=== PATIENT | female | born 1950 | race Caucasian/White ===

== ENCOUNTER 2016-08-18 14:34 | Emergency (ER) | payer OTHER, BC ==
[~2016-08-18 14:34] MED LIST: ASAB PO; EPIPEN0.3 IM; FIORICET OR; LIPITOR20 PO; LORTAB 5 PO; MULTIPLE VIT PO; NORCO1 TA1 PO; PRILOSEC40 MG PO; PRIN2.5 PO; PROZAC PO; RANITIDINE300 MG PO; V5 PO; X5 PO; XANAX1 MG PO; ZESTRIL20 MG PO
[2016-08-18 20:06] LABS: BASOPHILS 0.3 %; BASOPHILS ABSOLUTE 0.02 10/3/uL (0.0-0.16); EOSINOPHILS 2.4 %; EOSINOPHILS ABSOLUTE 0.19 10/3/uL (0.0-0.53); ER CBC TAT 0 Hrs 07 Mins; IMMATURE GRANULOCYTES 0.3 %; IMMATURE GRANULOCYTES ABSOLUTE 0.02 10/3/uL (0.0-0.11); LYMPHOCYTES 36.6 %; LYMPHOCYTES ABSOLUTE 2.88 10/3/uL (0.67-4.30); MEAN CORPUS HGB CONC 33.6 g/dL (32.0-36.0); MEAN CORPUSCULAR HEMOGLOB 31.2 pg (26.0-34.0); MEAN PLATELET VOLUME 8.8 fL (9.2-13.0); MONOCYTES 6.9 %; MONOCYTES ABSOLUTE 0.54 10/3/uL (0.21-1.20); NEUTROPHILS 53.5 %; NEUTROPHILS ABSOLUTE 4.21 10/3/uL (2.02-8.40); PLATELET COUNT 262 10/3/uL (150-400); RBC DISTRIBUTION WIDTH 13.9 % (12.0-16.0); WHITE BLOOD CELLS 7.9 10/3/uL (4.5-10.5)
[2016-08-18 20:08] LABS: HEMATOCRIT 41.4 % (36.0-48.0); HEMOGLOBIN 13.9 g/dL (12.0-16.0); MANUAL DIFF NO %; MEAN CORPUSCULAR VOLUME 92.8 fL (80-100); RED CELL COUNT 4.46 10/6/uL (4.0-5.6)
[2016-08-18 20:22] LABS: ALBUMIN 3.5 G/DL (3.5-5.0); ALKALINE PHOSPHATASE 116 U/L (45-117); BUN (BLOOD UREA NITROGEN) 6 MG/DL (6-23); CHLORIDE, SERUM 104 MMOL/L (96-112); CO2 (CARBON DIOXIDE) 27 MMOL/L (24-34); CREATININE 0.75 MG/DL (0.55-1.02); GFR AFRICAN AMERICAN 97 ML/MIN (>=60); GFR NON AFRICAN AMERICAN 84 ML/MIN (>=60); GLOBULIN 3.6 G/DL (2.5-4.1); GLUCOSE, SERUM 85 MG/DL (60-99); POTASSIUM, SERUM 3.8 MMOL/L (3.5-5.3); SGOT(AST) 25 U/L (5-40); SGPT(ALT) 28 U/L (5-65); SODIUM, SERUM 138 MMOL/L (135-148); TOTAL PROTEIN 7.1 G/DL (6.0-8.5)
== END 2016-08-18 20:31 | disposition home or self-care (01) ==
LOC: ER 14:34
PROVIDERS: Emergency Medicine
DX: M54.42 Lumbago with sciatica, left side (principal); I10 Essential (primary) hypertension; K21.9 Gastro-esophageal reflux disease without esophagitis; K76.0 Fatty (change of) liver, not elsewhere classified; F41.9 Anxiety disorder, unspecified; M19.90 Unspecified osteoarthritis, unspecified site; F17.200 Nicotine dependence, unspecified, uncomplicated; Z88.0 Allergy status to penicillin; Z88.2 Allergy status to sulfonamides; Z88.5 Allergy status to narcotic agent; Z91.041 Radiographic dye allergy status; Z88.8 Allergy status to other drugs, medicaments and biological substances; Z79.82 Long term (current) use of aspirin; Z79.899 Other long term (current) drug therapy
CPT/HCPCS: 72148; 80053; 85025; 96372; 99284; A9270-GY; J1170

== ENCOUNTER 2016-08-21 02:37 | Inpatient (IN) | payer OTHER, BC ==
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
--- NOTE | ~2016-08-21 | HP ---
History And Physical [facility] [address] [place] [address] NAME: AMARI ROJAS : 52 STATUS : REG ER PAT#: [id number] AGE: 66 ADM/REG DATE : 08/21/16 MR#: [id number] REPORT SERV DATE: 08/21/16 DICTATED BY: BENJAMIN MONROY DATE: 08/21/16 REPORT STATUS : Draft TRANSCRIBED BY: MODL DATE: 08/21/16 DATE OF ADMISSION: 08/21/2016 POINT OF ENTRY: [facility] Emergency Department. PRIMARY ORTHO SPINE SURGEON: Edwin Martinez DO. CHIEF COMPLAINT: Upper and lower extremity pain, numbness, and weakness. HISTORY OF PRESENT ILLNESS: Ms. Rojas is a 66-year-old female with history of hypertension, hyperlipidemia, hypothyroidism, as well as chronic lower back pain who presents to the emergency department today with persistent lower extremity pain, weakness, numbness, and tingling with new development of upper extremity pain and weakness. The patient sees Dr. Martinez for chronic lower back pain as well as lower extremity neuropathic pain with associated weakness. She is status post a lumbar laminectomy with subsequent revision. The patient has seen Dr. Martinez recently with continued complaints of lower extremity neuropathic pain as well as weakness with associated fatigue and inability to walk, and he ordered an MRI of the lumbar spine which showed no significant spinal stenosis, neural foraminal narrowing, or specific nerve root impingement. There are extensive postsurgical changes and mild degenerative disk disease, but again no stenosis or neural foraminal narrowing. Given absence of radiologic findings, he had planned for an outpatient MRI of the cervical and thoracic spine. Initial evaluation in the emergency department for labs were otherwise unremarkable except for urinalysis positive for urinary tract infection. Given the patient's extensive upper and lower extremity complaints with initial plans for outpatient MRI, MRI of the cervical and thoracic spine were obtained here in the emergency department and showed mild diffuse spinal cord edema from C2-C6 and concern for possible transverse myelitis. MRI of the thoracic spine shows T8-T9 oemm-ai-uewjsjha central spinal canal and right lateral recess narrowing and moderate right neural foraminal narrowing. The cervical spine also has C5-C6 mild central spinal canal stenosis with moderate right and mild left neural foraminal narrowing as well as amqb-wo-kvjmzwwa C6-C7 left neural foraminal narrowing and mild central spinal canal stenosis. Given the abnormal cervical spinal cord findings, the patient was admitted to the Hospitalist Service for Neurology as well as Ortho Spine Surgical consultations and evaluation. The patient states that she has not felt well recently. She has bilateral upper and lower extremity pains, primarily neuropathic in description with associated weakness, inability to walk great distances, inability to complete activities of daily living. She denies any recent fevers, night sweats, chills, chest pain, palpitations, shortness of breath, abdominal pain, nausea, vomiting, diarrhea, constipation, dysuria, melena, or hematochezia. REVIEW OF SYSTEMS: History And Physical [address] [place]. [address] NAME: AMARI ROJAS : 52 STATUS : REG ER PAT#: [id number] AGE: 66 ADM/REG DATE : 08/21/16 MR#: [id number] REPORT SERV DATE: 08/21/16 DICTATED BY: BENJAMIN MONROY DATE: 08/21/16 REPORT STATUS : Draft TRANSCRIBED BY: FAB DATE: 08/21/16 Comprehensive review of systems otherwise negative unless listed in the history of present illness. PAST MEDICAL HISTORY: 1. Rheumatoid arthritis. 2. Hypertension. 3. Hyperlipidemia. 4. Anxiety. 5. Hypothyroidism. 6. Fatty liver. 7. Chronic lower back pain. SURGICAL HISTORY: Appendectomy, cholecystectomy, abdominal hysterectomy, tonsillectomy, and lumbar fusion and subsequent revision. ALLERGIES: 1. PENICILLIN. 2. SULFA DRUGS. 3. IODINE. 4. . 5. OXYCODONE. 6. VALIUM. 7. CODEINE. 8. DICLOFENAC. 9. STEROIDS. HOME MEDICATIONS: 1. Xanax 1 mg b.i.d. 2. Aspirin 81 mg daily. 3. Prozac 20 mg daily. 4. Levothyroxine 25 mcg daily. 5. Lisinopril 20 mg daily. 6. Robaxin 1500 mg t.i.d. p.r.n. 7. Singulair 10 mg daily. 8. Naproxen 500 mg q.12 hours. 9. Omeprazole 40 mg daily. 10.Pravastatin 40 mg daily. 11.Ranitidine 3 mg at bedtime. SOCIAL HISTORY: Denies any alcohol or illicits. Does smoke about a half pack per day. FAMILY MEDICAL HISTORY: Mother with brain cancer. Father with diabetes and history of stroke. Siblings with history of hypertension and coronary artery disease. LABS AND IMAGIN. White count is 8.0, hemoglobin is 12.8, hematocrit is 37.8, and platelet count is 267. 2. Sodium 140, potassium 3.6, chloride 107, carbon dioxide 28, BUN 10, creatinine 0.84, History And Physical [address] [address] NAME: AMARI ROJAS : 51 STATUS : REG ER PAT#: [id number] AGE: 66 ADM/REG DATE : 08/21/16 MR#: [id number] REPORT SERV DATE: 08/21/16 DICTATED BY: BENJAMIN MONROY DATE: 08/21/16 REPORT STATUS : Draft TRANSCRIBED BY: MODL DATE: 08/21/16 glucose 93, calcium 8.0, protein 6.9, albumin 3.6, bili 0.6, ALT 19, AST 18, and alk phos 121. 3. Urinalysis, specific gravity is 1.009, hazy with large leukocyte esterase, positive nitrites, and 33 white blood cells per high-powered field. 4. MRI of the cervical spine shows mild diffuse cord edema with mild expansion of the cord extending from C2-C6. Findings may represent transverse myelitis. Clinical correlation recommended. C5-C6 posterior disk osteophyte formation with right paracentral disk protrusion, bilateral facet joint arthropathy, and uncovertebral hypertrophy resulting in mild central spinal canal stenosis, moderate right and mild left neural foraminal narrowing. C6-C7 posterior disk osteophyte formation, bilateral facet joint arthropathy, and left uncovertebral hypertrophy resulting in mild central spinal canal stenosis, evyb-yf-pidwwmvs left neural foraminal narrowing, the right neural foramen is patent. 5. CT scan of the thoracic spine, no evidence of acute fracture or traumatic subluxation, T8-T9 posterior disk bulge with right central and paracentral disk protrusion causing goyy-xh-dwwnvqdm central spinal canal and right lateral recess narrowing. There is moderate right neural foraminal narrowing. Left neural foramen is patent. PHYSICAL EXAMINATION: VITAL SIGNS: Temperature is 97.0 degrees Fahrenheit, pulse is 83, respirations are 16, satting 97% on room air, and blood pressure is 180/97. GENERAL: The patient is awake, alert, in no acute distress, and resting comfortably. She is an elderly female. HEENT: Atraumatic and normocephalic. Moist mucous membranes. Pupils are equal, round, and reactive to light and accommodation. Extraocular movements intact. No scleral icterus. NECK: No jugular venous distention. No carotid bruits. CARDIAC: Regular rate and rhythm. No murmurs or gallops. Normal S1, S2. LUNGS: Clear to auscultation bilaterally. No wheezes, rhonchi, or rales. ABDOMEN: Soft, nontender, and nondistended. Good bowel sounds. No rebound, guarding, or rigidity. EXTREMITIES: Warm and perfused. No cyanosis, clubbing, or edema. SKIN: Warm and dry. PSYCHIATRIC: Affect appropriate. NEUROLOGIC: Alert and oriented x3. Cranial nerves 2 through 12 grossly intact. Speech is normal. Gait is not assessed. Strength is 5/5 in bilateral upper extremities, 4/5 strength left lower extremity, and 5/5 strength right lower extremity. Gross sensation is intact. Gait is not assessed. ASSESSMENT AND PLAN: Ms. Rojas is a 66-year-old female with history of chronic lower back pain, who presents with bilateral upper and lower extremity neuropathic pain with some associated weakness and inability to walk and found to have evidence of mild cervical spinal cord edema and expansion as well as multiple areas of qrlz-js-vmlizoss central spinal canal stenosis and neural foraminal narrowing concerning for likely compressive myelopathy versus radiculopathy. PROBLEM LIST: 1. Cervical spinal cord edema and expansion. History And Physical [address] [address] NAME: AMARI ROJAS : 52 STATUS : REG ER PAT#: [id number] AGE: 66 ADM/REG DATE : 08/21/16 MR#: [id number] REPORT SERV DATE: 08/21/16 DICTATED BY: BENJAMIN MONROY DATE: 08/21/16 REPORT STATUS : Draft TRANSCRIBED BY: FAB DATE: 08/21/16 2. Upper and lower extremity neuropathic pain. 3. Urinary tract infection. 4. Hypertension. PLAN: 1. Cervical spinal cord edema and expansion, concern for possible transverse myelitis. We will consult Neurology for assistance in evaluating this abnormal MRI of the cervical spine. 2. Upper and lower extremity neuropathic pain and weakness. Based on the patient's descriptions as well as MRI findings, I suspect that this is all due to either myelopathy versus radiculopathy. We will consult both Neurology as well as Orthopedic Spine Surgery, Dr. Martinez, to review MRIs. 3. Urinary tract infection. Follow up urine cultures. IV antibiotics. 4. Hypertension, continue the patient's home antihypertensives and IV hydralazine p.r.n. 5. DVT prophylaxis, Lovenox subcu. CODE STATUS: The patient wishes to be full code. JCB/MODL Benjamin Monroy MD / [id number] CC: Mer Grace, DO
--- NOTE | ~2016-08-21 | CN ---
Consultation Report [facility] [address] [place]. [address] NAME: AMARI ROJAS : 52 STATUS : ADM Jagjit PAT#: [id number] AGE: 66 ADM/REG DATE : 08/21/16 MR#: [id number] REPORT SERV DATE: 08/21/16 DICTATED BY: DATE: REPORT STATUS : Draft TRANSCRIBED BY: MODL DATE: 08/21/16 NEUROLOGY CONSULTATION DATE OF CONSULTATION: 08/21/2016 REASON FOR CONSULT: Possible myelitis. HISTORY OF PRESENT ILLNESS: This is a 66-year-old female who presented to [facility] on 08/21/2016 secondary to increasing shooting pain down bilateral shoulder as well as pain in the lower back. The patient went to the patient's orthopedic physician, Dr. Martinez, who ordered MRI study and was noted to have C-spine lesion. The patient reports over the past week to two weeks was noted to have increasing pain to the bilateral shoulders as well as the pain, even lower back down to bilateral lower extremity where the patient reports pain relieved with neck extension. Otherwise, the patient denies shooting pain with neck flexion. The patient reports having chronic lower back pain secondary to previous back injury that has recently got worse. She also reports significant weakness as well as pain when patient was over-exerted. The patient otherwise denies significant difficulties in the hot weather. The patient does have chronic vision difficulties that progressively got worse over the past several months but does not appear to have unilateral blindness in the past. The patient complains of persistent and chronic bowel difficulty, again does not appear to have been worse recently, does not appear to have significant bladder difficulty according to the patient. She denies any significant walking difficulties and reports symptom at times gets better when patient is walking around. The patient has had recent muscle relaxer prescription secondary to significant pain but otherwise denies any other significant medication changes. The patient denies any recent illness, fever, chills, nausea, vomiting, chest pain, or shortness of breath. REVIEW OF SYSTEMS: The patient does have review of systems being negative except for those mentioned in the HPI. PAST MEDICAL HISTORY: Significant for rheumatoid arthritis, hypertension, hyperlipidemia, anxiety, hypothyroidism, fatty liver, and chronic lower back pain. The patient does not appear to have her rheumatological followup. The patient also has had a history of ENT followup in the past. SOCIAL HISTORY: Continued tobacco usage. Otherwise, denies alcohol or illicit drug usage. FAMILY HISTORY: Significant for history of brain tumor as well as diabetes, coronary artery disease, stroke, hypertension with the patient's extended family members have history of arthritis, with the patient's aunt was initially wheelchair bound and later bed-bound. ALLERGIES: AT TIME OF EVALUATION, PATIENT WAS NOTED TO HAVE MULTIPLE DRUG ALLERGIES INCLUDING PENICILLIN, SULFA, IODINE, BEE STINGS, PERCOCET, VALIUM, CODEINE, DICLOFENAC. THE Consultation Report [place] [id number] [facility] [place]. [address] NAME: AMARI ROJAS : 52 STATUS : ADM Jagjit PAT#: [id number] AGE: 66 ADM/REG DATE : 08/21/16 MR#: [id number] REPORT SERV DATE: 08/21/16 DICTATED BY: DATE: REPORT STATUS : Draft TRANSCRIBED BY: MODL DATE: 08/21/16 PATIENT REPORTS THE STEROIDS ALLERGY BUT REPORTS REACTION TO BE ELEVATED BLOOD PRESSURE. MEDICATIONS: The patient's home medication consists of Xanax, aspirin, fluoxetine, levothyroxine, lisinopril, Robaxin, Singulair, naproxen, Prilosec, pravastatin, prednisone Dosepak as well as Zantac. PHYSICAL EXAMINATION: VITAL SIGNS: Overnight, the patient was noted to have vital signs with T-max of 98.2, heart rate of 80 to 84, respirations of 14 to 20, blood pressure of 139 to 172 over 70 to 89. GENERAL: The patient is well developed, well nourished, in no acute distress. CARDIOVASCULAR EXAMINATION: Regular rate and rhythm. No carotid bruits were otherwise auscultated. PULMONARY EXAMINATION: Clear to auscultation bilaterally. NEUROLOGICAL EXAMINATION: Generally, the patient is alert, oriented to person, place, year, and month. Follows simple and 2-step commands. Mild decreased attention span. Intact registration. Some difficulties with recall. Cranial nerves 2 through 12; pupils equal, round, and reactive to light. Extraocular eye movement was noted to be intact with intact peripheral vision. The patient was noted to have reports of symmetrical facial sensation, symmetrical facial expression. Midline tongue. Normal palatal movement. Mild decreased hearing in bilateral ears. The patient demonstrated 5-/5 bilateral upper extremity strength and 4/5 bilateral lower extremity strength. Mild bilateral pronator drift was otherwise noted. Reports symmetrical sensation bilaterally. Deep tendon reflex was 1+ throughout. The patient otherwise demonstrated normal rshegr-tn-bxcn examination without ataxia. The patient demonstrated normal stable gait at time of evaluation. LABORATORY STUDIES: Demonstrated white blood cell count of 8.0, hemoglobin of 12.8, hematocrit of 37.8, and platelet count of 267. Chemistry panel: Sodium 140, potassium 3.6, chloride 107, bicarb 28, BUN of 10, creatinine 0.84, glucose of 93, calcium of 8.6. Urinalysis otherwise demonstrated large leukocyte esterase and positive nitrite. The patient's MRI of the C-spine as well as the T-spine and L-spine was reviewed. The patient C-spine does demonstrate longitudinally extensive lesion from roughly C2 to C6 area. Contrast was not provided. As a result, it is unclear whether or not the lesion was contrast enhancing. There is no brain MRI for evaluation. No C-spine, T-spine or L-spine compression was otherwise noted. IMPRESSION: 1. Myelitis. 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 We will start the patient on trial of Solu-Medrol as well as discontinue Robaxin and start the patient on tizanidine for muscle spasm. We will check serum neuromyelitis optica antibodies as well as SSA and SSB antibodies. We will perform lumbar puncture by Radiology and check MRI of the brain as well as C-spine with and without contrast with Consultation Report [address] [place]. [address] NAME: AMARI ROJAS : 52 STATUS : ADM Jagjit PAT#: [id number] AGE: 66 ADM/REG DATE : 08/21/16 MR#: [id number] REPORT SERV DATE: 08/21/16 DICTATED BY: DATE: REPORT STATUS : Draft TRANSCRIBED BY: MODL DATE: 08/21/16 fat suppression sequence for further evaluation especially of brain lesions. RECOMMENDATION: 1. Serum NMO antibodies as well as SSA and SSB antibody. 2. Radiology for lumbar puncture. 3. CSF for protein, glucose, cell count with differential, HSV PCR, cryptococcal antigen, myelin basic protein, oligoclonal bands. 4. HIV with morning labs. 5. NMO SSA SSB antibodies. 6. Solu-Medrol 500 mg IV b.i.d. x5 days. 7. Discontinue Robaxin. 8. Tizanidine 2 mg p.o. q.8 hours. CCH/MODL Issac Monaco MD / [id number] CC: Mer Winslow M.D.
--- NOTE | ~2016-08-21 | DS ---
Discharge Summary [facility] [address] [place]. [address] NAME: AMARI ROJAS : 52 STATUS : DIS IN PAT#: [id number] AGE: 66 ADM/REG DATE : 08/21/16 MR#: [id number] REPORT SERV DATE: 08/27/16 DICTATED BY: MIKHAIL TAM DATE: 08/26/16 REPORT STATUS : Draft TRANSCRIBED BY: FAB DATE: 08/26/16 ADMISSION DATE: 08/21/2016 DISCHARGE DATE: 08/26/2016 CONSULTATION: 1. Neurology, Dr. Murphy. 2. Spine surgeon, Dr. Martinez. INVASIVE PROCEDURES: None. DISCHARGE DIAGNOSES: 1. 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 2. Urinary tract infection. 3. Hypertension. 4. Hyperlipidemia. 5. History of fatty liver. 6. Rheumatoid arthritis. 7. Steroid-induced hyperglycemia. 8. Hypertension. DISCHARGE CONDITION: Stable. HISTORY OF PRESENT ILLNESS: For detailed HPI, make reference to Dr. Kunal English's dictation on 08/21/2016. In brief, this is a 66-year-old female with medical history of hypertension, hyperlipidemia, hypothyroidism, rheumatoid arthritis, and chronic low back pain, who presented to the emergency department with persistent lower extremity pain, generalized weakness, numbness, tingling, and new development of upper extremity weakness. Vital signs, temperature 97.0, pulse 53 beats per minute, respiratory rate 16, saturating 97% on room air. Physical exam was noted for lower extremity strength of 5/5, bilateral upper extremities 4/5. An MRI of the cervical spine shows mild diffuse cord edema with mild expansion of the cord extending from C2 to C5. Findings likely represent transverse myelitis. An assessment of cervical cord edema secondary to transverse myelitis was made in the ER. The patient was admitted to the Hospitalist Service. Autoimmune myelitis, questionable NMO versus transverse myelitis. Neurology was consulted. Recommended to check NMO antibody, and an LP was done. The patient was started on high-dose IV Solu-Medrol. The patient's generalized weakness continued to improve during the course of this admission. The patient received a total dose of five days therapy of IV Solu-Medrol during this admission with dramatic improvement in generalized weakness, lower extremity weakness, and upper extremity weakness. At the time of discharge, the patient's oligoclonal band NMO was still pending. Analysis of the CSF did not show any evidence of infection. The patient was advised to follow up with Neurology within two to three weeks of discharge. Discharge Summary [facility] [id number] [place]. [address] NAME: AMARI ROJAS : 52 STATUS : DIS IN PAT#: [id number] AGE: 66 ADM/REG DATE : 08/21/16 MR#: [id number] REPORT SERV DATE: 08/27/16 DICTATED BY: MIKHAIL TAM DATE: 08/26/16 REPORT STATUS : Draft TRANSCRIBED BY: MODL DATE: 08/26/16 The patient was also placed on methylprednisone Medrol pack for prednisone taper. Also of note, the patient's Spine Surgery, Dr. Martinez was consulted during this admission, was noted that the patient's imaging has no written evidence of cervical stenosis or neural foraminal narrowing. Hence, no surgical intervention was performed. The patient's dramatic improvement was only to response, which is in keeping with a myelitis syndrome. Hyperglycemia secondary to steroid use. The patient required sliding scale insulin during this admission. The patient's last HbA1c was 5.7. No known history of diabetes prior to admission. The patient's hyperglycemia is likely related to high-dose steroid use during this admission. Hypertension. The patient's blood pressure was elevated during this admission. Norvasc was added to the patient's home dose antihypertensive with good response. The patient was advised to continue to follow up with PCP as an outpatient. Urinary tract infection. Urinalysis on presentation showed large leukocyte esterase, positive nitrites. Urine culture grew E coli, pansensitive. The patient received total days of IV and p.o. cephalosporin to complete five days therapy prior to discharge. DISCHARGE MEDICATIONS: 1. Aspirin 81 mg p.o. daily. 2. Xanax 1 mg p.o. b.i.d. 3. Lisinopril 20 mg p.o. daily. 4. Norvasc 5 mg p.o. daily. 5. Zantac 300 mg p.o. daily. 6. Levothyroxine 25 mcg p.o. daily. 7. Methylprednisone Medrol pack taper. 8. Omeprazole 40 mg p.o. daily. 9. Singulair 10 mg p.o. daily. 10.Pravachol 40 mg p.o. daily. 11.Robaxin 1500 mg p.o. t.i.d. p.r.n. SIGNIFICANT IMAGIN. MRI cervical spine, impression, subtle increased signal is seen within the cervical cord from the C2 to C3 levels with mild cervical cord enlargement. Consider transverse myelitis or demyelinating syndrome. 2. MRI brain without contrast, impression, no acute intracranial abnormality. DISCHARGE CONDITION: Stable. DISCHARGE ACTIVITIES: As tolerated. DISCHARGE FOLLOWUP: 1. Follow up with Neurology within two to three weeks of discharge. 2. Follow up with primary care physician within one to two weeks of discharge. 3. Follow up with Rheumatology as an outpatient for management of rheumatoid arthritis. Discharge Summary [address] [address] NAME: AMARI ROJAS : 52 STATUS : DIS IN PAT#: [id number] AGE: 66 ADM/REG DATE : 08/21/16 MR#: [id number] REPORT SERV DATE: 08/27/16 DICTATED BY: MIKHAIL TAM DATE: 08/26/16 REPORT STATUS : Draft TRANSCRIBED BY: FAB DATE: 08/26/16 Greater than 30 minutes was used to prepare this discharge, reconcile medication, advise the patient on discharge plans, and followup. DICTATED BY: MD VINCENZO Hooks/FAB Mikhail Tam MD / [id number] CC: MD Arnaldo Hooks M.D.
[2016-08-21 03:53] LABS: BASOPHILS 0.4 %; BASOPHILS ABSOLUTE 0.03 10/3/uL (0.0-0.16); EOSINOPHILS 2.9 %; EOSINOPHILS ABSOLUTE 0.23 10/3/uL (0.0-0.53); HEMATOCRIT 37.8 % (36.0-48.0); HEMOGLOBIN 12.8 g/dL (12.0-16.0); IMMATURE GRANULOCYTES 0.1 %; IMMATURE GRANULOCYTES ABSOLUTE 0.01 10/3/uL (0.0-0.11); LYMPHOCYTES 40.6 %; LYMPHOCYTES ABSOLUTE 3.25 10/3/uL (0.67-4.30); MEAN CORPUS HGB CONC 33.9 g/dL (32.0-36.0); MEAN CORPUSCULAR HEMOGLOB 31.2 pg (26.0-34.0); MEAN CORPUSCULAR VOLUME 92.2 fL (80-100); MEAN PLATELET VOLUME 8.8 fL (9.2-13.0); MONOCYTES 6.7 %; MONOCYTES ABSOLUTE 0.54 10/3/uL (0.21-1.20); NEUTROPHILS 49.3 %; NEUTROPHILS ABSOLUTE 3.95 10/3/uL (2.02-8.40); PLATELET COUNT 267 10/3/uL (150-400); RBC DISTRIBUTION WIDTH 13.9 % (12.0-16.0)
[2016-08-21 03:54] LABS: MANUAL DIFF NO %
[2016-08-21 04:09] LABS: A/G RATIO 1.1 (0.7-1.9); ALBUMIN 3.6 G/DL (3.5-5.0); ALKALINE PHOSPHATASE 121 U/L (45-117); BUN (BLOOD UREA NITROGEN) 10 MG/DL (6-23); CALCIUM, SERUM 8.6 MG/DL (8.5-10.4); CHLORIDE, SERUM 107 MMOL/L (96-112); CO2 (CARBON DIOXIDE) 28 MMOL/L (24-34); CREATININE 0.84 MG/DL (0.55-1.02); GFR AFRICAN AMERICAN 85 ML/MIN (>=60); GFR NON AFRICAN AMERICAN 73 ML/MIN (>=60); GLOBULIN 3.3 G/DL (2.5-4.1); GLUCOSE, SERUM 93 MG/DL (60-99); POTASSIUM, SERUM 3.6 MMOL/L (3.5-5.3); SGOT(AST) 18 U/L (5-40); SGPT(ALT) 19 U/L (5-65); SODIUM, SERUM 140 MMOL/L (135-148); TOTAL BILIRUBIN 0.6 MG/DL (0-1.2); TOTAL PROTEIN 6.9 G/DL (6.0-8.5)
[2016-08-21 04:28] LABS: ASCORBIC ACID (UR NOT ORDER) NEG (NEG); BILIRUBIN, URINE NEGATIVE (NEG); ER URINALYSIS TAT 0 Hrs 18 Mins; KETONE, URINE NEGATIVE (NEG); LEUKOCYTE ESTERASE(NOT OR LARGE (NEG); NITRITE (URINE) POS (NEG); WBC (NOT ORDERED) (RFLEX) 33 (0-5)
[2016-08-21] MEDS ORDERED: SINGULAIR1 PO (06:21)
[2016-08-21] MEDS ORDERED: PRIN20 PO (06:22)
[2016-08-21] MEDS ORDERED: PRAVACHOL40 MG PO (06:22)
[2016-08-21] MEDS ORDERED: PROZAC PO (06:22)
[2016-08-21] MEDS ORDERED: PRILOSEC40 MG PO (06:23)
[2016-08-21] MEDS ORDERED: HALF81 PO (06:23)
[2016-08-21] MEDS ORDERED: LEVOTHYROXIN25 MCG PO (06:24)
[2016-08-21] MEDS ORDERED: NAP500 PO (06:25)
[2016-08-21] MEDS ORDERED: RANITIDINE300 MG PO (06:26)
[2016-08-21] MEDS ORDERED: METHOC750B PO (06:26)
[2016-08-21] MEDS ORDERED: XANAX1 MG PO (06:26)
[2016-08-21] MEDS ORDERED: STERAPRED DS10 MG PO (06:43)
[2016-08-22 07:00] LABS: FREE T4 1.12 NG/DL (0.76-1.46); ULTRASENSITIVE TSH 0.991 MCIU/ML (0.358-3.740)
[2016-08-22 07:01] LABS: CPK 66 U/L (0-200); RHEUMATOID FACTOR QUANT < 10 IU/ML (0-15)
[2016-08-23 07:50] LABS: BASOPHILS 0.1 %; BASOPHILS ABSOLUTE 0.01 10/3/uL (0.0-0.16); EOSINOPHILS 0 %; HEMATOCRIT 40.1 % (36.0-48.0); HEMOGLOBIN 13.7 g/dL (12.0-16.0); IMMATURE GRANULOCYTES 0.3 %; IMMATURE GRANULOCYTES ABSOLUTE 0.06 10/3/uL (0.0-0.11); LYMPHOCYTES 8.7 %; LYMPHOCYTES ABSOLUTE 1.52 10/3/uL (0.67-4.30); MEAN CORPUS HGB CONC 34.2 g/dL (32.0-36.0); MEAN CORPUSCULAR HEMOGLOB 31.4 pg (26.0-34.0); MEAN CORPUSCULAR VOLUME 91.8 fL (80-100); MEAN PLATELET VOLUME 9.1 fL (9.2-13.0); MONOCYTES 1.5 %; MONOCYTES ABSOLUTE 0.27 10/3/uL (0.21-1.20); NEUTROPHILS 89.4 %; NEUTROPHILS ABSOLUTE 15.69 10/3/uL (2.02-8.40); PLATELET COUNT 278 10/3/uL (150-400); RBC DISTRIBUTION WIDTH 13.8 % (12.0-16.0); RED CELL COUNT 4.37 10/6/uL (4.0-5.6)
[2016-08-23 07:52] LABS: INTERNATIONAL NORMAL RATI 1.1 UNITS (-); PROTIME (NOT ORD) 14.4 SEC (12.0-14.5)
[2016-08-23 07:54] LABS: MANUAL DIFF NO %; WHITE BLOOD CELLS 17.6 10/3/uL (4.5-10.5)
[2016-08-23 07:58] LABS: BUN (BLOOD UREA NITROGEN) 16 MG/DL (6-23); CALCIUM, SERUM 9.4 MG/DL (8.5-10.4); CHLORIDE, SERUM 106 MMOL/L (96-112); CO2 (CARBON DIOXIDE) 23 MMOL/L (24-34); CREATININE 0.77 MG/DL (0.55-1.02); GFR AFRICAN AMERICAN 94 ML/MIN (>=60); GFR NON AFRICAN AMERICAN 81 ML/MIN (>=60); GLUCOSE, SERUM 206 MG/DL (60-99); POTASSIUM, SERUM 3.9 MMOL/L (3.5-5.3); SODIUM, SERUM 138 MMOL/L (135-148)
[2016-08-23 11:25] LABS: ANA PATTERN NUCLEOLAR
[2016-08-23 16:06] LABS: TOTAL PROTEIN, CSF 40.2 MG/DL (15-45)
[2016-08-23 17:06] LABS: CSF APPEARANCE (NOT ORD) CLEAR (CLEAR); CSF BASO 0 % (NO REF RANGE); CSF COLOR (NOT ORD) COLORLESS (COLORLESS); CSF EOS 0 % (0-1); CSF LYMPH (NOT ORD) 60 % (28-96); CSF MONO 40 % (16-56); CSF RBC (NOT ORD) 1 MM3 (NO REFERENCE); CSF SEGS (NOT ORD) 0 % (0-7); CSF WBC (NOT ORD) 1 /uL (0-10); CSF XANTHROCHROMIA NEG (NEG)
[2016-08-24 06:38] LABS: BASOPHILS 0 %; EOSINOPHILS 0 %; HEMATOCRIT 40.8 % (36.0-48.0); HEMOGLOBIN 13.9 g/dL (12.0-16.0); IMMATURE GRANULOCYTES 0.4 %; IMMATURE GRANULOCYTES ABSOLUTE 0.07 10/3/uL (0.0-0.11); LYMPHOCYTES 8.7 %; LYMPHOCYTES ABSOLUTE 1.35 10/3/uL (0.67-4.30); MEAN CORPUS HGB CONC 34.1 g/dL (32.0-36.0); MEAN CORPUSCULAR HEMOGLOB 31.2 pg (26.0-34.0); MEAN CORPUSCULAR VOLUME 91.5 fL (80-100); MEAN PLATELET VOLUME 9.1 fL (9.2-13.0); MONOCYTES 1.7 %; MONOCYTES ABSOLUTE 0.27 10/3/uL (0.21-1.20); NEUTROPHILS 89.2 %; NEUTROPHILS ABSOLUTE 13.87 10/3/uL (2.02-8.40); PLATELET COUNT 309 10/3/uL (150-400); RBC DISTRIBUTION WIDTH 13.9 % (12.0-16.0); RED CELL COUNT 4.46 10/6/uL (4.0-5.6); WHITE BLOOD CELLS 15.6 10/3/uL (4.5-10.5)
[2016-08-24 06:39] LABS: MANUAL DIFF NO %
[2016-08-24 06:52] LABS: CALCIUM, SERUM 9.5 MG/DL (8.5-10.4); CHLORIDE, SERUM 108 MMOL/L (96-112); CO2 (CARBON DIOXIDE) 24 MMOL/L (24-34); CREATININE 0.75 MG/DL (0.55-1.02); GFR AFRICAN AMERICAN 97 ML/MIN (>=60); GFR NON AFRICAN AMERICAN 84 ML/MIN (>=60); POTASSIUM, SERUM 3.9 MMOL/L (3.5-5.3); SODIUM, SERUM 138 MMOL/L (135-148)
[2016-08-24 06:53] LABS: BUN (BLOOD UREA NITROGEN) 22 MG/DL (6-23); GLUCOSE, SERUM 139 MG/DL (60-99)
[2016-08-24 10:23] LABS: ANTI SS-A NEGATIVE (NEGATIVE); ANTI SS-B NEGATIVE (NEGATIVE)
[2016-08-25 06:10] LABS: BASOPHILS 0.1 %; BASOPHILS ABSOLUTE 0.01 10/3/uL (0.0-0.16); EOSINOPHILS 0 %; HEMATOCRIT 40.3 % (36.0-48.0); HEMOGLOBIN 13.9 g/dL (12.0-16.0); IMMATURE GRANULOCYTES 0.8 %; IMMATURE GRANULOCYTES ABSOLUTE 0.08 10/3/uL (0.0-0.11); LYMPHOCYTES 13.1 %; MEAN CORPUS HGB CONC 34.5 g/dL (32.0-36.0); MEAN CORPUSCULAR HEMOGLOB 31.7 pg (26.0-34.0); MEAN CORPUSCULAR VOLUME 91.8 fL (80-100); MONOCYTES 2.1 %; MONOCYTES ABSOLUTE 0.22 10/3/uL (0.21-1.20); NEUTROPHILS 83.9 %; NEUTROPHILS ABSOLUTE 8.95 10/3/uL (2.02-8.40); PLATELET COUNT 295 10/3/uL (150-400); RBC DISTRIBUTION WIDTH 13.9 % (12.0-16.0); RED CELL COUNT 4.39 10/6/uL (4.0-5.6); WHITE BLOOD CELLS 10.7 10/3/uL (4.5-10.5)
[2016-08-25 06:11] LABS: MANUAL DIFF NO %
[2016-08-25 06:26] LABS: ALBUMIN 3.4 G/DL (3.5-5.0); ALKALINE PHOSPHATASE 94 U/L (45-117); BUN (BLOOD UREA NITROGEN) 21 MG/DL (6-23); CALCIUM, SERUM 9.4 MG/DL (8.5-10.4); CHLORIDE, SERUM 108 MMOL/L (96-112); CO2 (CARBON DIOXIDE) 26 MMOL/L (24-34); CREATININE 0.72 MG/DL (0.55-1.02); GFR AFRICAN AMERICAN 102 ML/MIN (>=60); GFR NON AFRICAN AMERICAN 88 ML/MIN (>=60); GLOBULIN 3.4 G/DL (2.5-4.1); GLUCOSE, SERUM 147 MG/DL (60-99); POTASSIUM, SERUM 3.9 MMOL/L (3.5-5.3); SGOT(AST) 15 U/L (5-40); SGPT(ALT) 30 U/L (5-65); SODIUM, SERUM 141 MMOL/L (135-148); TOTAL BILIRUBIN 0.3 MG/DL (0-1.2); TOTAL PROTEIN 6.8 G/DL (6.0-8.5)
[2016-08-26 08:06] LABS: HEMATOCRIT 40.9 % (36.0-48.0); HEMOGLOBIN 13.8 g/dL (12.0-16.0); MANUAL DIFF YES %; MEAN CORPUS HGB CONC 33.7 g/dL (32.0-36.0); MEAN CORPUSCULAR HEMOGLOB 30.9 pg (26.0-34.0); MEAN CORPUSCULAR VOLUME 91.5 fL (80-100); MEAN PLATELET VOLUME 8.9 fL (9.2-13.0); PLATELET COUNT 281 10/3/uL (150-400); RBC DISTRIBUTION WIDTH 13.9 % (12.0-16.0); RED CELL COUNT 4.47 10/6/uL (4.0-5.6); WHITE BLOOD CELLS 10.3 10/3/uL (4.5-10.5)
[2016-08-26 08:42] LABS: BUN (BLOOD UREA NITROGEN) 23 MG/DL (6-23); CALCIUM, SERUM 9.4 MG/DL (8.5-10.4); CHLORIDE, SERUM 103 MMOL/L (96-112); CO2 (CARBON DIOXIDE) 25 MMOL/L (24-34); CREATININE 0.69 MG/DL (0.55-1.02); GFR AFRICAN AMERICAN 106 ML/MIN (>=60); GFR NON AFRICAN AMERICAN 91 ML/MIN (>=60); GLUCOSE, SERUM 120 MG/DL (60-99); PHOSPHORUS, SERUM 2.2 MG/DL (2.5-4.5); POTASSIUM, SERUM 4.5 MMOL/L (3.5-5.3); SODIUM, SERUM 135 MMOL/L (135-148)
[2016-08-26 09:29] LABS: LYMPHOCYTES 18 %; LYMPHOCYTES ABSOLUTE (CALC) 1.85 10/3/uL (0.67-4.30); MONOCYTES 2 %; MONOCYTES ABSOLUTE (CALC) 0.21 10/3/uL (0.21-1.20); NEUTROPHILS ABSOLUTE (CALC) 8.24 10/3/uL (2.02-8.40); RBC MORPHOLOGY NORM (NORMAL); SEGMENTED NEUTROPHIL (0) 80 %; TOTAL NUCLEATED CELLS 100
[2016-08-26 09:30] LABS: PLATELET ESTIMATE ADQ (ADEQUATE)
[2016-08-26] MEDS ORDERED: NORV5 PO (11:02)
[2016-08-26] MEDS ORDERED: HABIT21 TOP (11:05)
[2016-08-26] MEDS ORDERED: MEDROLPAK4 PO (11:07)
[2016-08-26 13:50] LABS: HSV DNA TYPE 1 Not Detected (NOTDET); HSV DNA TYPE 2 Not Detected (NOTDET)
[2016-08-27 02:51] LABS: CSF IGG SYNTHESIS RATE <0.0 mg/d (0.0-8.0); CSF OLIGOCLONAL BANDS Negative (NEG); CSF OLIGOCLONAL BANDS NUMBER 0 Bands (0-1); IGG INDEX 0.45 ratio (0.28-0.66); IMMUNOGLOBULIN G, SERUM 902 mg/dL (768-1632)
== END 2016-08-26 13:59 | disposition home or self-care (01) | DRG 59 ==
LOC: ER 02:37 → 1SO 09:28
PROVIDERS: Hospitalist; Psychiatry & Neurology Neurology; Specialist
PROC: 009U3ZZ Drainage of Spinal Canal, Percutaneous Approach (ICD-10-PCS; principal; 2016-08-23)
PROC: B01B1ZZ Fluoroscopy of Spinal Cord using Low Osmolar Contrast (ICD-10-PCS; 2016-08-23)
DX: G36.0 Neuromyelitis optica [Devic] (principal); N39.0 Urinary tract infection, site not specified; F30.9 Manic episode, unspecified; K76.0 Fatty (change of) liver, not elsewhere classified; M48.02 Spinal stenosis, cervical region; R73.9 Hyperglycemia, unspecified; B96.20 Unspecified Escherichia coli [E. coli] as the cause of diseases classified elsewhere; T38.0X5A Adverse effect of glucocorticoids and synthetic analogues, initial encounter; E78.5 Hyperlipidemia, unspecified; M06.9 Rheumatoid arthritis, unspecified; I10 Essential (primary) hypertension; F17.210 Nicotine dependence, cigarettes, uncomplicated; E03.9 Hypothyroidism, unspecified; K21.9 Gastro-esophageal reflux disease without esophagitis; G89.29 Other chronic pain; F41.9 Anxiety disorder, unspecified; M54.5 Low back pain; Z79.82 Long term (current) use of aspirin; Z79.899 Other long term (current) drug therapy; Z88.0 Allergy status to penicillin; Z88.2 Allergy status to sulfonamides; Z91.048 Other nonmedicinal substance allergy status; Z91.030 Bee allergy status; Z88.5 Allergy status to narcotic agent; Z88.8 Allergy status to other drugs, medicaments and biological substances
CPT/HCPCS: 62270; 70553; 72141; 72146; 72148; 72156; 77003; 80048; 80053; 81001; 82040; 82042; 82550; 82607; 82784; 82784-59; 82945; 82962; 83036; 83735; 83873; 83916; 84100; 84157; 84439; 84443; 85025; 85610; 85652; 86039; 86140; 86235; 86235-59; 86255; 86431; 87040; 87077; 87086; 87186; 87327; 87389; 87529; 87529-59; 88112; 89051; 96374; 96375; 99285; A9270-GY; A9577; J0360; J0690; J1170; J2360; J2930